=== PATIENT | male | born 1990 | race African-American/Black ===

== ENCOUNTER 2018-07-14 13:58 | Emergency (ER) | payer OTHER ==
[2018-07-14 14:51] LABS: Absolute Lymphocytes (CBC) 1.2 K/uL (0.7-4.9); Absolute Monocytes 0.5 K/uL (0.1-1.3); Absolute Neutrophil 4.6 K/uL (1.8-8.0); Basophils % 0.4 % (0-1.3); Eosinophils % 0.1 % (0-4.4); Hematocrit 43.5 % (39.6-49.0); Lymphocytes % 18.5 % (15.3-44.8); MPV 7.4 fL (7.6-11.3); Monocytes % 8.4 % (3.3-12.3); RBC Red Blood Cell Count 4.61 M/uL (4.33-5.43)
[2018-07-14] MEDS ORDERED: LORazepam 2 MG/ML VIAL ONE (14:51)
[2018-07-14] MEDS ORDERED: BENZTROPINE 2 MG/2 ML VIAL ONE (14:51)
[2018-07-14] MEDS ORDERED: NA CHLORIDE 0.9% 1,000 ML ONE (14:51)
[2018-07-14 15:04] LABS: BUN Blood Urea Nitrogen 14 mg/dL (7-18); Bicarbonate 31 mmol/L (21-32); Glucose Level 94 mg/dL (74-106); Magnesium 2.6 mg/dL (1.8-2.4); Potassium 4.2 mmol/L (3.5-5.1); Sodium Level 142 mmol/L (136-145)
--- NOTE | 2018-07-14 16:13 | RAD REPORT ---
EXAM DESCRIPTION: CT - Soft Tissue Neck W/Contr - 07/14/2018 3:40 pm CLINICAL HISTORY: Neck pain with sore throat. Dysphagia COMPARISON: None. TECHNIQUE: Computed axial tomography of the neck was obtained. 50 cc Isovue 300 was administered in travenously. Coronal and sagittal reconstruction was performed. All CT scans are performed using dose optimization technique as appropriate and may include automated exposure control or mA/KV adjustment according to patient size. FINDINGS: The tonsils appear enlarged bilaterally and contain calcifications and punctate air bubbl es. The parapharyngeal fat is clear. Peritonsillar abscess not noted The remainder of the pharynx, tongue base, larynx and subglottic trachea appear unremarkable The parotid, submandibular and thyroid glands appear unremarkable. No lymphadenopathy is seen The sinuses and mastoids are clear. IMPRESSION: Tonsils are mildly enlarged bilaterally which may indicate a tonsillitis. Given the calc ifications this may be chronic recurring tonsillitis
--- NOTE | 2018-07-14 17:32 | ER ---
Nurse's Notes [facility] Name: Fred Parsons Age: 28 yrs Sex: Male : 1990 Arrival Date: 07/14/2018 Time: 14:04 Bed 24 Private MD: Diagnosis: Trismus;Muscle spasm;Temporomandibular joint disorder, unspecified Presentation: 07/14 14:06 Presenting complaint: Patient states: " I have pain on L side of the jaw. Phlegm on ca1 throat and can hardly swallow. Drooling from time to time and earlier my was was opening up wide but it was locking. Denies taking new medications or food. Transition of care: patient was not received from another setting of care. Onset of symptoms was July 14, 2018. Risk Assessment: Do you want to hurt yourself or someone else? Patient reports no desire to harm self or others. Initial Sepsis Screen: Does the patient meet any 2 criteria? No. Patient's initial sepsis screen is negative. Does the patient have a suspected source of infection? No. Patient's initial sepsis screen is negative. Care prior to arrival: None. 14:06 Method Of Arrival: [employer] Enforcement: [place] [employer] ca1 14:06 Acuity: MACRINA 3 ca1 Triage Assessment: 14:09 General: Appears in no apparent distress. comfortable, Behavior is calm, cooperative, ca1 appropriate for age. Pain: Complains of pain in left jaw Pain does not radiate. Pain currently is 10 out of 10 on a pain scale. Pain began 4 hours ago. Historical: - Allergies: 14:09 No Known Allergies; ca1 - Home Meds: 14:09 None [Active]; ca1 - PMHx: 14:09 None; ca1 - PSHx: 14:09 None; ca1 - Immunization history:: Adult Immunizations not up to date. - Social history:: Smoking status: Patient/guardian denies using tobacco. - Ebola Screening: : Patient negative for fever greater than or equal to 101.5 degrees Fahrenheit, and additional compatible Ebola Virus Disease symptoms Patient denies exposure to infectious person Patient denies travel to an Ebola-affected area in the 21 days before illness onset. - Family history:: not pertinent. - Hospitalizations: : No recent hospitalization is reported. Screenin:10 Abuse screen: Denies threats or abuse. Denies injuries from another. Nutritional ca1 screening: No deficits noted. Tuberculosis screening: No symptoms or risk factors identified. Fall Risk None identified. Assessment: 14:10 General: Appears in no apparent distress. comfortable, Behavior is calm, cooperative, ca1 appropriate for age. Pain: Complains of pain in face and left jaw Pain does not radiate. Pain currently is 10 out of 10 on a pain scale. Pain began 4 hours ago. Neuro: Level of Consciousness is awake, alert, obeys commands, Oriented to person, place, time, situation. Cardiovascular: Heart tones S1 S2 present Capillary refill < 3 seconds Patient's skin is warm and dry. Respiratory: Airway is patent Respiratory effort is even, unlabored, Respiratory pattern is regular, symmetrical, Breath sounds are clear bilaterally. GI: Abdomen is flat, non-distended, Bowel sounds present X 4 quads. Abd is soft and non tender X 4 quads. : No deficits noted. No signs and/or symptoms were reported regarding the genitourinary system. EENT: Reports difficulty swallowing. EENT:. Derm: Derm: Skin is intact, is healthy with good turgor, Skin is pink, warm \\T\\ dry. Musculoskeletal: Circulation, motion, and sensation intact. Capillary refill < 3 seconds, Range of motion: intact in all extremities. 14:54 Reassessment: Patient appears in no apparent distress at this time. Patient and/or ca1 family updated on plan of care and expected duration. Pain level reassessed. Patient is alert, oriented x 3, equal unlabored respirations, skin warm/dry/pink. 15:40 Reassessment: Pt to CT scan. ca1 15:55 Reassessment: Patient appears in no apparent distress at this time. Patient and/or ca1 family updated on plan of care and expected duration. Pain level reassessed. Patient is alert, oriented x 3, equal unlabored respirations, skin warm/dry/pink. 16:45 Reassessment: Patient appears in no apparent distress at this time. Patient is alert, ca1 oriented x 3, equal unlabored respirations, skin warm/dry/pink. 17:43 Reassessment: Patient appears in no apparent distress at this time. Patient is alert, ca1 oriented x 3, equal unlabored respirations, skin warm/dry/pink. Vital Signs: 14:09 BP 137 / 97; Pulse 82; Resp 17 S; Temp 98.9(O); Pulse Ox 100% on R/A; Weight 51.71 kg; ca1 Height 5 ft. 0 in. (152.40 cm); Pain 10/10; 15:00 BP 131 / 84; Pulse 80; Resp 17 S; Pulse Ox 100% on R/A; ca1 15:55 BP 119 / 78; Pulse 57; Resp 16 S; Temp 98.9(O); Pulse Ox 100% on R/A; ca1 16:45 BP 117 / 81; Pulse 64; Resp 17; Temp 98.7(O); Pulse Ox 100% on R/A; ca1 17:43 BP 120 / 68; Pulse 54; Resp 17 S; Temp 98.4(O); Pulse Ox 99% on R/A; ca1 14:09 Body Mass Index 22.26 (51.71 kg, 152.40 cm) ca1 ED Course: 14:04 Patient arrived in ED. ss 14:06 Felisha Parker, RN is Primary Nurse. ca1 14:08 Triage completed. ca1 14:09 Arm band placed on right wrist. ca1 14:10 Edgard Monge MD is Attending Physician. rn 14:10 Patient has correct armband on for positive identification. Bed in low position. Call ca1 light in reach. Side rails up X 1. Security at bedside. Pulse ox on. NIBP on. Warm blanket given. 14:40 No provider procedures requiring assistance completed. Inserted saline lock: 20 gauge ca1 in right antecubital area, using aseptic technique. Blood collected. 15:40 CT Soft Tissue Neck W/contr In Process Unspecified. EDMS 15:40 CT completed. Patient tolerated procedure well. Patient moved back from CT. mw3 17:44 IV discontinued, intact, bleeding controlled, No redness/swelling at site. Pressure ca1 dressing applied. Administered Medications: 14:41 Drug: NS 0.9% 1000 ml Route: IV; Rate: 1000 ml; Site: right antecubital; ca1 16:00 Follow up: Response: No adverse reaction; IV Status: Completed infusion ca1 14:43 Drug: Ativan 1 mg Route: IVP; Site: right antecubital; ca1 15:40 Follow up: Response: No adverse reaction; Marked relief of symptoms ca1 14:48 Drug: COgentin 2 mg Route: IVP; Site: right antecubital; ca1 15:40 Follow up: Response: No adverse reaction; Pain is decreased ca1 Outcome: 17:32 Discharge ordered by MD. velez 17:44 Discharged to Law Enforcement ca1 17:44 Condition: stable 17:44 Discharge instructions given to patient, Instructed on discharge instructions, follow up and referral plans. Demonstrated understanding of instructions, follow-up care. 17:45 Patient left the ED. ca1 Signatures: Dispatcher [employer] EDMS Edgard Monge MD MD rn Smirch, Shelby, RN RN ss Willis, Michelle mw3 Felisha Parker RN RN ca1 Corrections: (The following items were deleted from the chart) 15:55 14:54 BP 131 / 84; Pulse 64bpm; Resp 16bpm; Spontaneous; Pulse Ox 100% RA; ca1 ca1 15:56 14:54 BP 119 / 78; Pulse 57bpm; Resp 16bpm; Spontaneous; Pulse Ox 100% RA; Temp 98.9F ca1 Oral; ca1 16:45 15:55 Pulse 64bpm; Resp 17bpm; Pulse Ox 100% RA; Temp 98.7F Oral; ca1 ca1
--- NOTE | 2018-07-14 17:32 | EDPHYS ---
Physician Documentation [facility] Name: Fred Parsons Age: 28 yrs Sex: Male : 1990 Arrival Date: 07/14/2018 Time: 14:04 Bed 24 Private MD: ED Physician Edgard Monge HPI: 07/14 14:25 This 28 yrs old Black Male presents to ER via Law [employer] with complaints of jaw rn pain and locking up, drooling. 14:25 The patient presents with pain. The problem is located in the jaw/mandible. Onset: The rn symptoms/episode began/occurred today. Duration: The symptoms are intermittent. Modifying factors: The symptoms are alleviated by nothing, the symptoms are aggravated by chewing, opening mouth very wide. Associated signs and symptoms: Pertinent negatives: fever, inability to eat, redness in area, swelling. Severity of symptoms: At their worst the symptoms were moderate, in the emergency department the symptoms have improved. The patient has not experienced similar symptoms in the past. Reports thinks medication in his food, saw evidence of blue capsule and llamas pill, has never had this problem before, no trauma involved, reports jaw gets "locked open", then resolves, during episode drools, currently mouth feels dry and cotton mouth but can swallow, no subjective swelling. . Historical: - Allergies: 14:09 No Known Allergies; ca1 - Home Meds: 14: None [Active]; ca1 - PMHx: 14: None; ca1 - PSHx: 14:09 None; ca1 - Immunization history:: Adult Immunizations not up to date. - Social history:: Smoking status: Patient/guardian denies using tobacco. - Ebola Screening: : Patient negative for fever greater than or equal to 101.5 degrees Fahrenheit, and additional compatible Ebola Virus Disease symptoms Patient denies exposure to infectious person Patient denies travel to an Ebola-affected area in the 21 days before illness onset. - Family history:: not pertinent. - Hospitalizations: : No recent hospitalization is reported. ROS: 14:25 Constitutional: Negative for fever, chills, and weight loss, Eyes: Negative for injury, rn pain, redness, and discharge, ENT: + pain to jaw Neck: Negative for injury, pain, and swelling, Cardiovascular: Negative for chest pain, palpitations, and edema, Respiratory: Negative for shortness of breath, cough, wheezing, and pleuritic chest pain, Abdomen/GI: Negative for abdominal pain, nausea, vomiting, diarrhea, and constipation, MS/Extremity: Negative for injury and deformity, Skin: Negative for injury, rash, and discoloration, Neuro: Negative for headache, weakness, numbness, tingling, and seizure. Exam: 14:25 Constitutional: This is a well developed, well nourished patient who is awake, alert, rn and in no acute distress. Head/Face: Normocephalic, atraumatic. Eyes: Pupils equal round and reactive to light, extra-ocular motions intact. Lids and lashes normal. Conjunctiva and sclera are non-icteric and not injected. Cornea within normal limits. Periorbital areas with no swelling, redness, or edema. ENT: No trismus, FROM of face and jaw. handling secretions, dry MM, no swelling Neck: Trachea midline, no thyromegaly or masses palpated, and no cervical lymphadenopathy. Supple, full range of motion without nuchal rigidity, or vertebral point tenderness. No Meningismus. Skin: Warm, dry MS/ Extremity: Pulses equal, no cyanosis. Neurovascular intact. Full, normal range of motion. Equal circumference. Neuro: Awake and alert, GCS 15, oriented to person, place, time, and situation. Cranial nerves II-XII grossly intact. Motor strength 5/5 in all extremities. Sensory grossly intact. Cerebellar exam normal. Normal gait. Vital Signs: 14:09 BP 137 / 97; Pulse 82; Resp 17 S; Temp 98.9(O); Pulse Ox 100% on R/A; Weight 51.71 kg; ca1 Height 5 ft. 0 in. (152.40 cm); Pain 10/10; 15:00 BP 131 / 84; Pulse 80; Resp 17 S; Pulse Ox 100% on R/A; ca1 15:55 BP 119 / 78; Pulse 57; Resp 16 S; Temp 98.9(O); Pulse Ox 100% on R/A; ca1 16:45 BP 117 / 81; Pulse 64; Resp 17; Temp 98.7(O); Pulse Ox 100% on R/A; ca1 17:43 BP 120 / 68; Pulse 54; Resp 17 S; Temp 98.4(O); Pulse Ox 99% on R/A; ca1 14:09 Body Mass Index 22.26 (51.71 kg, 152.40 cm) ca1 MDM: 14:10 Patient medically screened. rn 17:29 Differential diagnosis: extrapyramidal side effect of medication, muscle spasm, rn psychogenic, TMJ dysfunction, TMJ subluxation. Data reviewed: vital signs, nurses notes, lab test result(s), radiologic studies, CT scan, and as a result, I will discharge patient. Counseling: I had a detailed discussion with the patient and/or guardian regarding: the historical points, exam findings, and any diagnostic results supporting the discharge/admit diagnosis, lab results, radiology results, the need for outpatient follow up, to return to the emergency department if symptoms worsen or persist or if there are any questions or concerns that arise at home. Special discussion: I discussed with the patient/guardian in detail that at this point there is no indication for admission to the hospital. It is understood, however, that if the symptoms persist or worsen the patient needs to return immediately for re-evaluation. ED course: Pt back to baseline after ativan and cogentin, neg strep/ct neck/labs. . 07/14 14:22 Order name: CBC with Diff rn 07/14 14:22 Order name: Basic Metabolic Panel; Complete Time: 15:53 rn 08 14:22 Order name: Magnesium; Complete Time: 15:53 rn 08 14:24 Order name: CBC with Automated Diff; Complete Time: 15:53 EDRI 07/14 16:33 Order name: Strep; Complete Time: 17:29 rn 07/14 17:39 Order name: Throat Culture EDRI 07/14 14:22 Order name: IV Start; Complete Time: 14:47 rn 08 14:22 Order name: CT Soft Tissue Neck W/contr; Complete Time: 16:33 rn Administered Medications: 14:41 Drug: NS 0.9% 1000 ml Route: IV; Rate: 1000 ml; Site: right antecubital; ca1 16:00 Follow up: Response: No adverse reaction; IV Status: Completed infusion ca1 14:43 Drug: Ativan 1 mg Route: IVP; Site: right antecubital; ca1 15:40 Follow up: Response: No adverse reaction; Marked relief of symptoms ca1 14:48 Drug: COgentin 2 mg Route: IVP; Site: right antecubital; ca1 15:40 Follow up: Response: No adverse reaction; Pain is decreased ca1 Disposition: 07/14/18 17:32 Discharged to Home. Impression: Trismus, Muscle spasm, Temporomandibular joint disorder, unspecified. - Condition is Stable. - Discharge Instructions: Muscle Cramps and Spasms, [id number]. - Medication Reconciliation Form, Thank You Letter, Antibiotic Education, Prescription Opioid Use form. - Follow up: Private Physician; When: As needed; Reason: Recheck today's complaints, Re-evaluation by your physician. - Problem is new. - Symptoms have improved. Signatures: Dispatcher [employer] EDEdgard Andrea MD MD rn Acob, NERI Baeza RN ca1 Corrections: (The following items were deleted from the chart) 17:45 17:32 07/14/2018 17:32 Discharged to Home. Impression: Trismus; Muscle spasm; ca1 Temporomandibular joint disorder, unspecified. Condition is Stable. Forms are Medication Reconciliation Form, Thank You Letter, Antibiotic Education, Prescription Opioid Use. Follow up: Private Physician; When: As needed; Reason: Recheck today's complaints, Re-evaluation by your physician. Problem is new. Symptoms have improved. rn
== END 2018-07-14 17:45 | disposition home or self-care (01) ==
LOC: ER 13:58
DX: M26.609 Unspecified temporomandibular joint disorder, unspecified side (principal); M62.838 Other muscle spasm
CPT/HCPCS: 36415; 70491; 80048; 83735; 85025; 87070; 87081; 96361; 96374; 96375; 99285; J0515; J7030; Q9967